=== PATIENT | male | born 1990 | race Caucasian/White ===

== ENCOUNTER 2020-02-21 16:15 | Outpatient (REF) | payer MEDICAID, SELFPAY | END 2020-02-21 16:16 | disposition home or self-care (01) | LOC: HO.LAB 16:15 | PROVIDERS: Visit Provider Internal Medicine | DX: Z20.828 Contact with and (suspected) exposure to other viral communicable diseases (principal) | CPT/HCPCS: C9803; U0003 ==

== ENCOUNTER 2020-04-30 15:49 | Outpatient (REF) | payer MEDICAID, SELFPAY | END 2020-04-30 15:50 | disposition home or self-care (01) | LOC: HO.LAB 15:49 | PROVIDERS: Visit Provider Internal Medicine | DX: Z20.822 Contact with and (suspected) exposure to COVID-19 (principal) | CPT/HCPCS: 36415; C9803; U0003 ==

== ENCOUNTER 2020-06-24 10:50 | Emergency (ER) | payer MEDICAID, SELFPAY ==
[2020-06-24 11:03] VITALS: BP 114/74; PULSE 80; RESP 16; TEMP 36.6; O2SAT 100; BMI 25.8
--- NOTE | 2020-06-24 11:04 | ED_ITS ---
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 States still has pain on the right side sometimes radiates down the right leg. He denies any GI symptoms. No recent fever or illness. Denies any prior h istory of IVD or current IVDA use. No bowel/bladder involvement. Onset (ago): week(s) Severity: moderate Relieving factors: immobilization Exacerbating factors: movement and palpation Other symptoms: none Treatments prior to arrival: cold therapy Related Data Previous Rx's Medication Instructions Recorded cyclobenzaprine 5 mg PO TID PRN #14 tab 06/24/20 ibuprofen 800 mg PO Q8H PRN #30 tab 06/24/20 prednisone 40 mg PO DAILY 5 Days #10 tab 06/24/20 Allergies Allergy/AdvReac Type Severity Reaction Status Date / Time Penicillins [PCN] Allergy Mild RASH Verified 06/24/20 11:02 bee pollen [BEE STINGS] Allergy Unknown ANAPHYLAXIS Verified 06/24/20 11:02 mushroom [MUSHROOM] Allergy Unknown ANAPHYLAXIS Verified 06/24/20 11:02 Balicillin Allergy Unknown Unknown Uncoded 06/24/20 11:02 Review of Systems Review of Systems: Constitutional: No Weight loss, No Fever, No Chills, No Night Sweats, No Fatigue, No Malaise ENT/Mouth: No Hearing loss, No Ear Pain, No Nasal Congestion, No Sinus Pain, No Hoarseness, No sore throat, No Rhinorrhea, No Swallowing Difficulty Eyes: No Eye Pain, No Swelling, No Redness, No Foreign Body, No Discharge, No Vision Changes Cardiovascular: No Chest Pain, No SOB, No Dyspnea on Exertion, No Orthopnea, No Edema, No Palpitations Respiratory: No Cough, No Sputum, No Wheezing, No Smoke Exposure, No Dyspnea Gastrointestinal: No Nausea, No Vomiting, No Diarrhea, No Constipation, No abdominal Pain, No Hematochezia, No Melena Genitourinary: No Dysuria, No Urinary Frequency, No Hematuria, No Urinary Incontinence, No Urgency, No Flank Pain, No Urinary Flow Changes, No Hesitancy Musculoskeletal: No joint pain, No Myalgias, No Joint Swelling, as moted per HPI Skin: No Skin Lesions, No rash Neuro: No Weakness, No Numbness, No Paresthesias, No Loss of Consciousness, No Dizziness, No Headache Psych: No Social Issues Heme/Lymph: No Bruising, No Bleeding,No Lymphadenopathy Endocrine: No Polyuria, No Polydipsia, No Temperature Intolerance [facility] Past Medical History Medical History Asthma No known health problems Social History Social History Advance Directives: No Advance Directives Information Provided: No Physical Exam Vital Signs: Vital Signs: Last Vital Signs Temp 97.8 F 06/24/20 11:03 Pulse 80 06/24/20 11:03 Resp 16 06/24/20 11:03 BP 114/74 06/24/20 11:03 Pulse Ox 100 06/24/20 11:03 Body Mass Index 25.8 Reviewed Const: General: cooperative and healthy appearing; No acute distress or intoxicated appearing Nutritional Appearance: average body habitus Orientation/consciousness: patient oriented x3 HENMT: Head: Yes normal to inspection Ears: hearing grossly normal bilaterally Eyes: General: appearance normal, both eyes and all related structures Visual Garcia: normal visual garcia by confrontation Neck: Neck: Yes normal visual inspection, No positive Brudzinski's sign, No positive Kernig's sign and No tender Thyroid: Thyroid normal Chest: Chest palpation & inspection: normal inspection of the chest Resp: Effort & Inspection: normal respiratory effort Auscultation: clear to auscultation bilaterally Cardio: Jugular venous distension: no JVD Rhythm: regular rhythm Heart sounds: S1 normal heart sound present and S2 normal heart sound present GI: Inspection: Yes normal to inspection Palpation (GI): Soft to palpation Percussion: Yes normal to percussion Auscultation: normal bowel sounds : General: Yes no CVA tenderness Back/Spine/Pelvis: Back: no CVA tenderness Back/spine/pelvis image: 1. Soft tissue tender palpation over this region. No rash or ecchymoses. No midline to palpation. No step-off. Positive leg lift at 65 degrees on right side. Negative Homans. No lower extremity edema. Pulses intact. Full range of motion. Skin tone within normal limits. Skin: General skin exam: no rashes or lesions noted Neuro: General: patient oriented x3 Extrem: General: Yes normal to inspection Course Course Course Narrative: Right-sided lumbar paraspinal muscle strain subsequent sciatic involvement without lbp red flags. VSS, NAD. Ambulatory steady straight gait. No GI/ vomit. No signs symptoms of saddle anesthesia. Is requesting chiropractor referral. Discharge Plan Discharge Clinical Impression: Sciatica Qualifiers: Laterality: right Qualified Code(s): M54.31 - Sciatica, right side Patient Disposition: Home, Self-Care Instructions: Sciatica (ED) Additional Instructions: Gentle stretching Warm compresses Take medication prescribed Do not drink alcohol or drive while taking muscle relaxant (Flexeril) Follow-up with outpatient referral as discussed Return if any concerns or worsening symptoms Thank you Prescriptions: New cyclobenzaprine 5 mg tablet 5 mg PO TID PRN (Reason: muscle spasm) Qty: 14 RF: 0 prednisone 20 mg tablet 40 mg PO DAILY 5 Days Qty: 10 RF: 0 ibuprofen 800 mg tablet 800 mg PO Q8H PRN (Reason: pain) Qty: 30 RF: 0 Referrals: Physician,None [Primary Care Provider] - 2 days ([facility] [address] [place] [address] [id number] ? ) Lauren Bean MD [Physician] - 1 week
== END 2020-06-24 11:39 | disposition home or self-care (01) ==
PROVIDERS: Emergency Provider Emergency Medicine
DX: M54.31 Sciatica, right side (principal); Z79.899 Other long term (current) drug therapy
CPT/HCPCS: 99283

== ENCOUNTER 2020-10-22 20:11 | Emergency (ER) | payer MEDICAID, SELFPAY ==
[2020-10-22 21:03] VITALS: BP 107/77; PULSE 73; RESP 16; TEMP 36.9; O2SAT 98; BMI 26.6
--- NOTE | 2020-10-22 23:04 | ED.BACK ---
HPI - Back Pain/Injury General Chief Complaint: Back Pain/Injury Stated Complaint: BACK PAIN Time Seen by Provider: 10/22/20 23:01 Source: patient Mode of arrival: ambulatory Limitations: no limitations History of Present Illness HPI Narrative: Patient with chronic low back pain complaining of increased pain lately ambulatory to the ER without any significant distress says that he was picking up something and pain got worse no paresthesias no weakness patient took Flexeril prior to arrival Related Data Previous Rx's Medication Instructions Recorded cyclobenzaprine 5 mg PO TID PRN #14 tab 06/24/20 ibuprofen 800 mg PO Q8H PRN #30 tab 06/24/20 prednisone 40 mg PO DAILY 5 Days #10 tab 06/24/20 cyclobenzaprine 10 mg PO TID PRN #14 tab 10/22/20 naproxen [Naprosyn] 500 mg PO BID PRN #30 tab 10/22/20 Allergies Allergy/AdvReac Type Severity Reaction Status Date / Time Penicillins [PCN] Allergy Mild RASH Verified 10/22/20 21:03 bee pollen [BEE STINGS] Allergy Unknown ANAPHYLAXIS Verified 10/22/20 21:03 mushroom [MUSHROOM] Allergy Unknown ANAPHYLAXIS Verified 10/22/20 21:03 Balicillin Allergy Unknown Unknown Uncoded 06/24/20 11:02 Review of Systems Review of Systems: Yes all other systems are reviewed and are negative PMFSH Past Medical History Medical History Asthma No known health problems Physical Exam Vital Signs: Vital Signs: Last Vital Signs Temp 98.4 F 10/22/20 21:03 Pulse 73 10/22/20 21:03 Resp 16 10/22/20 21:03 BP 107/77 10/22/20 21:03 Pulse Ox 98 10/22/20 21:03 Body Mass Index 26.6 Appearance: Alert. Oriented X3. No acute distress. ENT: Pharynx normal. Oral Mucosa moist Neck: Normal inspection. Neck supple. CVS: Normal heart rate and rhythm. Pulses normal. Respiratory: No respiratory distress. Equal air entry bilateral, Abdomen: Soft and nontender. Bowel sounds are present, Skin: Skin warm and dry. Normal skin color. Normal skin turgor. Back: Diffuse lower spine spasm no focal spinal tenderness as SLR negative bilateral Extremities: No lower extremity edema. No calf tenderness Neuro: Oriented X 3. No motor deficit. No sensory deficit. Discharge Plan Discharge Clinical Impression: Chronic back pain Qualifiers: Back pain location: low back pain Back pain laterality: bilateral Sciatica presence: without sciatica Qualified Code(s): M54.5 - Low back pain Patient Disposition: Home, Self-Care Instructions: Back Pain (ED) Additional Instructions: Take pain medication as prescribed and follow with PCP Prescriptions: New naproxen [Naprosyn] 500 mg tablet 500 mg PO BID PRN (Reason: pain) Qty: 30 RF: 0 cyclobenzaprine 10 mg tablet 10 mg PO TID PRN (Reason: muscle spasm) Qty: 14 RF: 0 No Action cyclobenzaprine 5 mg tablet 5 mg PO TID PRN (Reason: muscle spasm) Qty: 14 RF: 0 prednisone 20 mg tablet 40 mg PO DAILY 5 Days Qty: 10 RF: 0 ibuprofen 800 mg tablet 800 mg PO Q8H PRN (Reason: pain) Qty: 30 RF: 0
[2020-10-22] MEDS: Ketorolac Tromethamine 15 MG/ML VIAL IM (23:28)
== END 2020-10-22 23:31 | disposition home or self-care (01) ==
LOC: HO.ED 23:16
PROVIDERS: Emergency Provider Internal Medicine; PCP Family Medicine
DX: M54.5 Low back pain (principal)
CPT/HCPCS: 96372; 99283; 99284; J1885

== ENCOUNTER 2021-05-15 17:32 | Emergency (ER) | payer MEDICAID, SELFPAY ==
--- NOTE | ~2021-05-15 | XR_ITS ---
EXAMINATION: XR LUMBOSACRAL SPINE CLINICAL INFORMATION: Back pain. COMPARISON: Radiograph of the lumbar spine dated from 03/23/2017. TECHNIQUE: Three views of the lumbosacral spine. FINDINGS: The vertebral bodies and posterior elements are normal. The disc spaces are preserved and the vertebral alignment is normal. The paraspinal soft tissues are normal. XR/XR lumbar spine 2-3V IMPRESSION: Unremarkable examination.
[2021-05-15 18:26] VITALS: BP 143/72; PULSE 94; RESP 18; TEMP 37; O2SAT 99; BMI 25.8
[2021-05-15 18:57] LABS: COVID-19 Test Negative (Negative); IDNOW Serial# 08D9AD1C
--- NOTE | 2021-05-15 21:49 | ED.GENADULT ---
HPI - General Adult General Chief complaint: General Medical Stated complaint: back pain and sore throat chills Time Seen by Provider: 05/15/21 18:38 Source: patient Mode of arrival: ambulatory Limitations: no limitations History of Present Illness HPI narrative: 30 years old male came in for evaluation of low back pain. Back pain started since early this morning, pain is dull aching, constant, worsening with movement, partial improvement with rest, no radiation, no other associated symptoms in particular no urinary incontinence, no weakness, no numbness. Patient declined any history of IV drug abuse, no fever, no chills. No back trauma. Patient had similar episodes of back pain sporadically. Related Data Previous Rx's Medication Instructions Recorded cyclobenzaprine 5 mg tablet 5 mg PO TID PRN #14 tab 06/24/20 ibuprofen 800 mg tablet 800 mg PO Q8H PRN #30 tab 06/24/20 prednisone 20 mg tablet 40 mg PO DAILY 5 Days #10 tab 06/24/20 cyclobenzaprine 10 mg tablet 10 mg PO TID PRN #14 tab 10/22/20 naproxen 500 mg tablet (Naprosyn) 500 mg PO BID PRN #30 tab 10/22/20 Allergies Allergy/AdvReac Type Severity Reaction Status Date / Time Penicillins [PCN] Allergy Mild RASH Verified 10/22/20 21:03 bee pollen [BEE STINGS] Allergy Unknown ANAPHYLAXIS Verified 10/22/20 21:03 mushroom [MUSHROOM] Allergy Unknown ANAPHYLAXIS Verified 10/22/20 21:03 Balicillin Allergy Unknown Unknown Uncoded 06/24/20 11:02 Review of Systems Review of Systems: all other systems are reviewed and are negative Constitutional: Reports as per HPI and Reports no additional constitutional complaints Eyes: Reports as per HPI and Reports no additional eye complaints Reports system reviewed and no additional complaints, except as documented Cardiovascular: Reports as per HPI and Reports no additional cardiovascular complaints Respiratory: Reports as per HPI and Reports no additional respiratory complaints Gastrointestinal: Reports as per HPI and Reports no additional gastrointestinal complaints Genitourinary: Reports no additional female genitourinary complaints Musculoskeletal: Reports no additional musculoskeletal complaints Skin/Breast: Reports system reviewed and no additional complaints, except as docu Psychiatric: Reports no additional psychiatric complaints Endocrine: Reports no additional endocrine complaints Hematologic/Lymphatic: Reports no additional hematologic/lymphatic complaints Allergic/Immunologic: Reports no additional allergic/immunologic complaints Reports system reviewed and no additional complaints, except as documented and Reports Abnormal speech present [facility] Past Medical History Medical History Asthma Back pain Social History Social History Advance Directives: No Advance Directives Information Provided: No Physical Exam Vital Signs: Vital Signs: Last Vital Signs Temp 98.6 F 05/15/21 18: Pulse 94 05/15/21 18:26 Resp 18 05/15/21 18:26 BP 143/72 H 05/15/21 18: Pulse Ox 99 05/15/21 18: BMI result Body Mass Index 25.8 vital signs have been reviewed as appeared to be correct. Blood pressure normal. Heart rate normal. Respiration rate normal. Temperature normal. Oxygen saturation normal. Appearance: Alert. Oriented X3. No acute distress. Head: Normal external exam. Normocephalic. Atraumatic. No Tovar signs noted. No raccoon eyes noted Eyes: PERRLA. EOMI. Conjunctiva and sclera normal. Eyelids normal. ENT: TM's Normal. Pharynx normal. Uvula midline. Moist mucous membranes. No trismus noted. No drooling noted. No muffled voice noted. Neck: Normal inspection. Neck supple. FROM. No adenopathy. Thyroid Normal. No meningeal signs. No neck mass noted. CVS: Normal heart rate and rhythm. Heart sound normal. No murmurs noted. Pulses normal throughout. Respiratory: No respiratory distress. Painless inspiration. Breath sounds normal. No wheezes/rales/rhonchi noted. Chest nontender. No accessory muscle usage noted or decreased air movement noted. Abdomen: Soft and nontender. Bowel sounds normal in all 4 quadrants. No distention noted. No organomegaly noted. No visible injury noted. Back: No CVA tenderness. Full range of motion noted. Skin: Skin warm and dry. Normal skin color. Normal skin turgor. No rashes/lesions/lacerations noted. Extremities: No lower extremity edema. Extremities exhibit normal range of motion. Extremities nontender. Neuro: Oriented X 3. Cranial nerve exam: II-XII are grossly intact No motor deficit. No sensory deficit. Reflexes normal. able to ambulate on both toes and heels. Perianal sensation intact. Course Course Course Narrative: Assessment and plan. 30-year-old male came in with low back pain x1 day symptoms and clinical presentation with physical exam are consistent with myofascial muscle spasms. patient at low risk for epidural abscesses since no fever, no history of IV drug abuse, was intact neuro exam, no urinary or stool incontinence. Patient was instructed to apply heating pad, rest, avoid lifting / pushing /pending. Using NSAIDs and muscle relaxant. Medical Decision Making Lab Data Lab results reviewed: Yes I reviewed the patient's lab results. Labs: Lab Results 05/15/21 05/15/21 Range/Units 18:29 21:58 Urine Color YELLOW Urine Appearance CLEAR Urine pH 6.5 (5.0-8.0) Ur Specific [place] 1.025 (1.005-1.025) Urine Protein NEG (NEG-TRACE) MG/DL Urine Glucose (UA) NEG (NEG) MG/DL Urine Ketones NEG (NEG) MG/DL Urine Blood NEG (NEG) Urine Nitrite NEG (NEG) Ur Leukocyte Esterase NEG (NEG) COVID-19 ([facility]) Negative (Negative) COVID-19 Clin Com See Note Imaging Data lumbar spine x-ray: Attestation: I personally reviewed and interpreted this imaging study as follows: Radiologist's impression: unremarkable examination. Discharge Plan Discharge Clinical Impression: Acute myofascial pain Patient Disposition: Home, Self-Care Instructions: Musculoskeletal Pain (ED) Prescriptions: No Action cyclobenzaprine 5 mg tablet 5 mg PO TID PRN (Reason: muscle spasm) Qty: 14 0RF prednisone 20 mg tablet 40 mg PO DAILY 5 Days Qty: 10 0RF ibuprofen 800 mg tablet 800 mg PO Q8H PRN (Reason: pain) Qty: 30 0RF naproxen [Naprosyn] 500 mg tablet 500 mg PO BID PRN (Reason: pain) Qty: 30 0RF cyclobenzaprine 10 mg tablet 10 mg PO TID PRN (Reason: muscle spasm) Qty: 14 0RF Referrals: [facility] [Primary Care Provider] - 2 days Stand Alone Forms: Work/School Release
[2021-05-15 22:14] LABS: Appearance Urine CLEAR; Color Urine YELLOW; Glucose Urine UA NEG (NEG); Leukocyte Esterase Urine NEG (NEG); Nitrite Urine NEG (NEG); PH 6.5 (5.0-8.0); Specific Gravity - Urine 1.025 (1.005-1.025); Urine Blood NEG (NEG); Urine Ketones NEG (NEG); Urine Protein NEG (NEG-TRACE)
[2021-05-15] MEDS: Ketorolac Tromethamine 60 MG/2 ML VIAL IM (22:46)
== END 2021-05-15 22:50 | disposition home or self-care (01) ==
PROVIDERS: Emergency Provider Emergency Medicine
DX: J02.8 Acute pharyngitis due to other specified organisms (principal); R51.9 Headache, unspecified; Z20.822 Contact with and (suspected) exposure to COVID-19; Z79.899 Other long term (current) drug therapy
CPT/HCPCS: 72100; 81003; 87635; 96372; 99284; J1885

== ENCOUNTER 2021-11-29 15:53 | Emergency (ER) | payer MEDICAID, SELFPAY ==
[2021-11-29 16:02] VITALS: BP 118/76; PULSE 105; RESP 16; TEMP 37.7; O2SAT 98; BMI 27.6
--- NOTE | 2021-11-29 16:28 | ED.EAR ---
HPI - Ear Problem General Chief complaint: Ear Problems Stated complaint: Earache/headache Source: patient Mode of arrival: ambulatory Limitations: no limitations History of Present Illness HPI Narrative: 31-year-old male presents for evaluation for right ear pain. 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 He presents because he would like his ear irrigated, and is reporting decreased hearing. Not report fevers or chills loss balance or MD Complaint: ear pain and decreased hearing Location: right ear Duration: constant Severity: mild Relieving factors: nothing Exacerbating factors: nothing Discharge from ear: no Associated symptoms ear: decreased hearing Treatment prior to arrival: none Related Data Previous Rx's Medication Instructions Recorded cyclobenzaprine 5 mg tablet 5 mg PO TID PRN muscle spasm #14 06/24/20 tabs ibuprofen 800 mg tablet 800 mg PO Q8H PRN pain #30 tabs 06/24/20 prednisone 20 mg tablet 40 mg PO DAILY 5 days #10 tabs 06/24/20 cyclobenzaprine 10 mg tablet 10 mg PO TID PRN muscle spasm #14 10/22/20 tabs naproxen 500 mg tablet (Naprosyn) 500 mg PO BID PRN pain #30 tabs 10/22/20 carbamide peroxide 6.5 % ear drops 5 drp otic (ear) right Q12H 4 days 11/29/21 (Ear Wax Removal Kit) #15 mL cefuroxime axetil 500 mg tablet 500 mg PO Q12H 7 days #14 tabs 11/29/21 Allergies Allergy/AdvReac Type Severity Reaction Status Date / Time Penicillins [PCN] Allergy Mild RASH Verified 11/29/21 16:02 bee pollen [BEE STINGS] Allergy Unknown ANAPHYLAXIS Verified 11/29/21 16:02 mushroom [MUSHROOM] Allergy Unknown ANAPHYLAXIS Verified 11/29/21 16:02 Balicillin Allergy Unknown Unknown Uncoded 06/24/20 11:02 Review of Systems Review of Systems: Constitutional: No Fever, No Chills ENT/Mouth: Positive Ear Pain, No Hoarseness, No sore throat Eyes: No Eye Pain, No Swelling, No Redness, No Foreign Body Cardiovascular: No Chest Pain, No SOB Respiratory: No Cough, No Dyspnea Gastrointestinal: No Nausea, No Vomiting, No Diarrhea, No abdominal Pain Genitourinary: No Dysuria, No Hematuria Musculoskeletal: No joint pain, No Myalgias, No Joint Swelling Skin: No Skin lacerations, No rash Neuro: No Weakness, No Numbness, No Paresthesias, No Loss of Consciousness, No Dizziness, No Headache Psych: No Anxiety/Panic, No Depression Heme/Lymph: no easy bruising, no Lymphadenopathy Endocrine: No Polyuria, No Polydipsia Yes all other systems are reviewed and are negative [facility] Past Medical History Attestation statement: The following information was validated with the patient. Source: old records reviewed Medical History Asthma Back pain Social History Social History Advance Directives: No Advance Directives Information Provided: No Physical Exam Vital Signs: Vital Signs: Last Vital Signs Temp 99.9 F 11/29/21 16:02 Pulse 105 H 11/29/21 16:02 Resp 16 11/29/21 16:02 BP 118/76 11/29/21 16:02 Pulse Ox 98 11/29/21 16:02 O2 Del Method 11/29/21 16:02 BMI result Body Mass Index 27.6 Appearance: Alert. Oriented X3. No acute distress. Eyes: Pupils equal, round and reactive to light. ENT: Pharynx normal. Right tympanic membrane partially visualized secondary to cerumen on the tympanic membrane. Visualized tympanic membrane is erythematous and bulging. Left tympanic membrane is normal. Bilateral canals are normal. No mastoid tenderness. Neck: Normal inspection. Neck supple. No cervical lymphadenopathy. CVS: Normal heart rate and rhythm. Pulses normal. Respiratory: No respiratory distress. Breath sounds normal. Abdomen: Soft and nontender. Skin: Skin warm and dry. Normal skin color. Normal skin turgor. Extremities: No lower extremity edema. Get well-balanced well coordinated. Neuro: No motor deficit. No sensory deficit. Cranial nerves 2-12 intact. Course Course Course Narrative: 31-year-old male presents for right ear pain requesting irrigation. 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 Right tympanic membranes partially visualized, bulging and erythematous consistent with otitis media, cerumen circumferential with partial occlusion of tympanic membrane. , no mastoid tenderness, no cervical lymphadenopathy, for [id number] Debrox drops or liquid Colace, and to be given cefuroxime for otitis media. Patient is afebrile and nontoxic. Vital signs stable and within normal limits. Patient verbalized understanding of and agrees plan of care discharge home. Verbalized understanding of signs symptoms indicate need for emergent intervention. MDM - Ear Differential Diagnosis Differential diagnosis: Likely otitis externa, otitis media, foreign body in ear, ruptured TM and cerumen impaction Medical Records Attestation: I reviewed the patient's medical records. Discharge Plan Discharge Clinical Impression: Otitis media, Cerumen debris on tympanic membrane of right ear Patient Disposition: Home, Self-Care Instructions: How to Use Ear Drops (ED), Ear Infection (ED) Additional Instructions: You were evaluated for your pain. Please take cefuroxime 500 mg twice a day for the next 7 days. This medication is for 10 days. Please use ear wax removal kit, follow the directions on the package. If ear drops are not available [id number] or by the pharmacy, you can use liquid Colace. You can find this medication in the stool softener section. You can ask pharmacist or pharmacy employee to help you find this medication. Apply 5 drops to the right ear twice a day. Irrigate with a bulb syringe. Follow-up with primary care physician next week. Return to the emergency department for any new, concerning, or worsening symptoms. Prescriptions: New cefuroxime axetil 500 mg tablet 500 mg PO Q12H 7 Days Qty: 14 0RF Ear Wax Removal Kit 6.5 % drops 5 drp otic (ear) right Q12H 4 Days Qty: 15 0RF No Action cyclobenzaprine 5 mg tablet 5 mg PO TID PRN (Reason: muscle spasm) Qty: 14 0RF prednisone 20 mg tablet 40 mg PO DAILY 5 Days Qty: 10 0RF ibuprofen 800 mg tablet 800 mg PO Q8H PRN (Reason: pain) Qty: 30 0RF naproxen [Naprosyn] 500 mg tablet 500 mg PO BID PRN (Reason: pain) Qty: 30 0RF cyclobenzaprine 10 mg tablet 10 mg PO TID PRN (Reason: muscle spasm) Qty: 14 0RF Interventions: ED Discharge Assessment Last Done: 11/29/21 17:13 Discharge Date/Time: 11/29/21 17:14
[2021-11-29] MEDS: Docusate Sodium 100 MG/10 ML LIQUID PO (17:04)
== END 2021-11-29 17:14 | disposition home or self-care (01) ==
PROVIDERS: Emergency Provider Emergency Medicine
DX: H66.91 Otitis media, unspecified, right ear (principal); H61.21 Impacted cerumen, right ear; H92.01 Otalgia, right ear
CPT/HCPCS: 99283

== ENCOUNTER 2022-10-29 15:13 | Outpatient (REF) | payer MEDICAID, SELFPAY ==
--- NOTE | ~2022-10-29 | XR_ITS ---
EXAMINATION: XR LUMBOSACRAL SPINE CLINICAL INFORMATION: Lumbar sprain. COMPARISON: 05/15/2021 and 03/23/2017. TECHNIQUE: Three views of the lumbosacral spine. FINDINGS: There are 5 [id number] lumbar vertebrae. The bony texture and alignment is satisfactory. No acute fracture, spondylolisthesis, or spondylolysis appreciated. There is mild spurring seen anterior aspect superior endplate L4. There appears to be mild narrowing posterior aspects of the L4-L5 and L5-S1 levels. Sacroiliac joints appear unremarkable. Pedicles intact. XR/XR lumbar spine 2-3V IMPRESSION: Minor degenerative change lumbar spine L4 to S1. No acute fracture, spondylolisthesis, or spondylolysis identified.
== END 2022-10-29 15:14 | disposition home or self-care (01) ==
LOC: HO.XRAY 15:13
PROVIDERS: PCP Internal Medicine; Visit Provider Internal Medicine
DX: S33.5XXA Sprain of ligaments of lumbar spine, initial encounter (principal); X58.XXXA Exposure to other specified factors, initial encounter; Y93.9 Activity, unspecified; Y92.9 Unspecified place or not applicable; Y99.9 Unspecified external cause status
CPT/HCPCS: 72100

== ENCOUNTER 2024-12-31 20:22 | Emergency (ER) | payer MEDICAID, SELFPAY ==
--- NOTE | 2024-12-31 20:24 | ED_ITS ---
HPI - Back Pain/Injury General Chief Complaint: Back Pain/Injury Stated Complaint: back pain Time Seen by Provider: 12/31/24 20:31 Source: patient Mode of arrival: ambulatory Limitations: no limitations History of Present Illness ED Provider: Carlyn Hinkle APRN HPI Narrative: 34 yo male with history of sciatica, degenerative disc disease, bipolar disorder, ADHD, migraines, asthma here with lower back pain x 4 days. No injuries or falls. Taking naproxen at home with continued pain. Also tried diclofenac. Pain radiates down the right leg. No weakness, numbness, tingling in the LE. No numbness in the groin. No bowel or bladder incontinence. No fevers, chills. No history of IVDA, weight loss or night sweats. Related Data Previous Rx's ?Medication ?Instructions ?Recorded cyclobenzaprine 5 mg tablet 5 mg PO TID PRN muscle spa sm #14 06/24/20 tabs ibuprofen 800 mg tablet 800 mg PO Q8H PRN pain #30 t abs 06/24/20 prednisone 20 mg tablet 40 mg (2 x 20 mg) PO DAILY 5 days 06/24/20 #10 tabs cyclobenzaprine 10 mg tablet 10 mg PO TID PRN muscle s pasm #14 10/22/20 tabs naproxen 500 mg tablet (Naprosyn) 500 mg PO BID PRN pa in #30 tabs 10/22/20 carbamide peroxide 6.5 % ear drops 5 drp otic (ear) ri ght Q12H 4 days 11/29/21 (Ear Wax Removal Kit) #15 mL cefuroxime axetil 500 mg tablet 500 mg PO Q12H 7 days #14 tabs 11/29/21 cyclobenzaprine 10 mg tablet 10 mg PO TID PRN muscle s pasm #15 12/31/24 tabs lidocaine 5 % topical patch 1 patch topical DAILY #15 ea 12/31/24 (Lidoderm) naproxen 500 mg tablet 500 mg PO BID PRN pain #30 t abs 12/31/24 Allergies Allergy/AdvReac Type Severity Reaction Status Date / Time Penicillins (PCN) Allergy Mild RASH Verified 12/31/24 20:26 bee pollen (BEE STINGS) Allergy Unknown ANAPHYLAXIS Verified 12/31/24 20:26 mushroom (MUSHROOM) Allergy Unknown ANAPHYLAXIS Verified 12/31/24 20:26 Balicillin Allergy Unknown Unknown Uncoded 12/31/24 20:26 Review of Systems Review of Systems: Yes all other systems are reviewed and are negative Constitutional: Constitutional: Reports no additional constitutional complaints, Denies body ache(s), Denies chills, Denies fever(s), Denies headache(s) and Denies weakness Eyes: Eyes: Reports no additional eye complaints and Denies change in vision ENT: Reports system reviewed and no additional complaints, except as documented, Denies dizziness, Denies headache(s), Denies nasal congestion, Denies nasal discharge and Denies neck pain Cardiovascular: Cardiovascular: Reports no additional cardiovascular complaints, Denies chest pain, Denies leg edema and Denies dyspnea Respiratory: Respiratory: Reports no additional respiratory complaints, Denies cough and Denies dyspnea Gastrointestinal: Gastrointestinal: Reports no additional gastrointestinal complaints, Denies abdominal pain, Denies diarrhea, Denies nausea and Denies vomiting Genitourinary: Genitourinary: Denies urinary incontinence Musculoskeletal: Musculoskeletal: Reports no additional musculoskeletal compl aints, Reports back pain, Denies arthralgias, Denies joint swelling, Denies neck pain, Denies numbness, Reports radiating pain into limb and Denies tingling Integumentary/Breasts: Skin/Breast: Reports system reviewed and no additional complaints, except as docu and Denies rash Neurologic: Reports system reviewed and no additional complaints, except as documented, Denies Abnormal speech present, Denies dizziness, Denies headache(s), Denies numbness, Denies tingling and Denies weakness PMFSH Past Medical History Attestation statement: The following information was validated with the patient. Source: old records reviewed and nursing notes reviewed Medical History Back pain Asthma Social History Social History Advance Directives: No Advance Directives Information Provided: Yes Physical Exam Vital Signs: Vital Signs: Last Vital Signs Temp 98.0 F 12/31/24 20:25 Pulse 88 12/31/24 20:25 Resp 16 12/31/24 20:25 BP 117/76 12/31/24 20:25 Pulse Ox 100 09/28/25 20:25 O2 Del Method Room Air 12/31/24 20:25 BMI result Body Mass Index 28.1 Const: General: cooperative, healthy appearing, comfortable and no acute distress Orientation/consciousness: patient oriented x3 Limitations: no limitations HEENT: Head: Yes normal to inspection Ears: hearing grossly normal bilaterally General nose exam: Normal external nose present Face and sinus: Yes normal facial exam Mouth: Normal oral and palatal mucosa present Throat: Yes posterior oropharynx normal Eyes: General: appearance normal, both eyes and all related structures Pupils: Equal, round and reactive pupils present Neck: Neck: Yes normal visual inspection Chest: Chest palpation & inspection: normal inspection of the chest Resp: Effort & Inspection: normal respiratory effort Auscultation: clear to auscultation bilaterally Cardio: Rate: regular rate Rhythm: regular rhythm Peripheral pulses: Peripheral pulses 2+ throughout GI: Inspection: Yes normal to inspection Palpation (GI): Soft to palpation and nontender Auscultation: normal bowel sounds Back/Spine/Pelvis: Other: Lumbar mid spine tenderness with no step offs or deformities worsened with flexion of the spine Thoracic/Lumbar Spine: thoracic and lumbar spine normal to inspection Skin: General skin exam: no rashes or lesions noted Neuro: General: patient oriented x3, moves all extremities, no focal motor deficits and normal sensation to monofilament Cranial nerves: Yes CN's II-XII intact bilaterally, Yes Equal, round and reactive pupils present, Yes Bilaterally intact EOM present, Yes Nystagmus not present, Yes Normal facial strength present and Yes Midline tongue present Cognition (Neuro): normal cognition Speech: No Abnormal speech present Gait exam (Neuro): Normal gait present Motor exam (neuro): 5/5 motor strength present throughout Sensory Exam: Normal double simultaneous stimulation for sensation Deep tendon reflexes (DTR's): Right patellar reflex intensity grade: 2+ and Left patellar reflex intensity grade: 2+ Extrem: General: Yes normal to inspection Medical Decision Making Medical Decision Making MDM Narrative: 34 yo male with history of sciatica, degenerative disc disease, bipolar disorder, ADHD, migraines, asthma here with lower back pain x 4 days. No injuries or falls. Taking naproxen at home with continued pain. Also tried diclofenac. Pain radiates down the right leg. No weakness, numbness, tingling in the LE. No numbness in the groin. No bowel or bladder incontinence. No fevers, chills. No history of IVDA, weight loss or night sweats. TTP to lumbar mid spine, no step or deformities. Worsened with flexion of the spine. Normal neuro exam with no focal deficits or red flag symptoms. Likely lumbar radiculpathy Will treat with NSAIDs, flexeril, lidoderm patches Differential Diagnosis Differential Diagnoses: The differential diagnosis associated with the presentation includes Lumbar radiculopathy, lumbar strain, herniated disc Low suspicion for epidural abscess with no risk factors of same, no neurological deficits or red flag symptoms Low suspicion for ACS with no reports of chest pain, shortness of breath, diaphoresis or vomiting Low suspicion for pyelonephritis or renal colic with no CVA tenderness, urinary symptoms reported Low suspicion for malignancy with no red flag symptoms, more acute onset Low suspicion for cord compression, cauda equina with normal neurological exam and no red flag symptoms Admission/Observation Consideration of admission/observation: Escalation of care including admission/observation considered No neurological deficits or red flag symptoms suggest need for emergent MRI, neurosurgery consultation and/or admission Tests considered The following testing was considered but not selected: see above Discharge Plan Discharge Clinical Impression: Lumbar radiculopathy Patient Disposition: Home, Self-Care Instructions: Lumbar Radiculopathy (ED), Lower Back Exercises (ED) Additional Instructions: Heat or ice Gentle stretching Follow up with your outpatient providers as needed for any continued symptoms Prescriptions: New naproxen 500 mg tablet 500 mg PO BID PRN (Reason: pain) Qty: 30 0RF cyclobenzaprine 10 mg tablet 10 mg PO TID PRN (Reason: muscle spasm) Qty: 15 0RF lidocaine [Lidoderm] 5 % adhesive patch,medicated 1 patch topical DAILY Qty: 15 0RF Rx Instructions: leave on most painful area for up to 12 hrs No Action cyclobenzaprine 5 mg tablet 5 mg PO TID PRN (Reason: muscle spasm) Qty: 14 0RF prednisone 20 mg tablet 40 mg PO DAILY 5 Days Qty: 10 0RF ibuprofen 800 mg tablet 800 mg PO Q8H PRN (Reason: pain) Qty: 30 0RF naproxen [Naprosyn] 500 mg tablet 500 mg PO BID PRN (Reason: pain) Qty: 30 0RF cyclobenzaprine 10 mg tablet 10 mg PO TID PRN (Reason: muscle spasm) Qty: 14 0RF cefuroxime axetil 500 mg tablet 500 mg PO Q12H 7 Days Qty: 14 0RF Ear Wax Removal Kit 6.5 % drops 5 drp otic (ear) right Q12H 4 Days Qty: 15 0RF Referrals: Physician,Unknown J [Physician, Medical] Print Language: Kuwaiti
[2024-12-31 20:25] VITALS: BP 117/76; PULSE 88; RESP 16; TEMP 36.7; O2SAT 100; BMI 28.1
--- OUTSIDE RECORDS SUMMARY | 2024-12-31 20:39 | XMS_ITS | Clinical Summary ---
Author Organization [employer] Address [address] [place] [address] Care Team Providers Care Coat Baster Name Role Phone Unavailable Primary Care Provider Unavailabl e Allergies Active Allergy Reactions Criticality Noted Date Comments Bee Venom 08/01/2020 Other reaction(s): Hives / Skin Rash Mushroom Extract Complex (Obsolete) 08/01/2020 Other reaction(s): Trouble Breathing Penicillin G Hives 08/01/2020 Other reaction(s): Hives / Skin Rash Medications cyclobenzaprine (Flexeril) 10 MG tabletIndicatio ns:Lumbar sprain, initial encounter Take 1 tablet (10 mg) by mouth at bedtime for 10 days. 10 tablet 10/26/2022 Active Active Problems Problem Noted Date Diagnosed Date Lumbar sprain 10/26/2022 Assessment & Plan (10/26/2022 4:47 PM EDT): Take tylenol with flexiril qhs, counseled regarding sedation and constipation with lfexiril avoid driving fu x-ray and chiropractor FU with PCP in 8 weeks Atypical squamous cells of u ndetermined significance on cytologic smear of anus (ASC-US) 10/23/2022 Impacted tooth 10/01/2022 Dental caries 10/01/2022 Bipolar disorder 11/26/2021 Mood disorder 07/24/2021 Social History Tobacco Use Types Packs/Day Years Used Date Smoking Tobacco: Every Day Cigarettes 0.3 0.5 Passive Smoke Exposure: Past Smokeless Tobacco: Former Tobacco Cessation:Ready to Q uit: Not Asked; Counseling Given: Not Answered Alcohol Use Standard Drinks/Week Comments Never 0 (1 standard drink = 0.6 oz pur e alcohol) Depression Answer Date Recorded Patient Health Questionnaire-9 Score 22 10/26/2022 Housing Stability Answer Date Recorded What is your housing situation today? I have barbara bear 02/08/[address] you li ve. Do you have problems with any of the following? None of the above 02/08/2023 Food Insecurity Answer Date Recorded Within the past 12 months, y ou worried that your food would run out before you got money to buy more: Never True 02/08/2023 Within the past 12 months,th e food you bought just didn't last and you didn't have enough money to get more: Never True 09/2022 Transportation Answer Date Recorded In the past 12 months, has l ack of transportation kept you from medical appts, meetings, work or from getting things needed for daily living? No 02/08/2023 Utilities Answer Date Recorded In the past 12 months, has t he electric, gas, oil or water company threatened to shut off services in your home? No 02/08/2023 Depression Answer Date Recorded Patient Health Questionnaire-2 Score 3 10/26/2022 Sex and Gender Information Value Date Recorded Sex Assigned at Male 02/02/2022 10:37 AM EDT Legal Sex Male 10:37 AM EDT Gender Identity Male 02/02/2022 10:37 AM EDT Sexual Orientation Don't know 02/02/2022 10 :37 AM EDT Last Filed Vital Signs Vital Sign Reading Time Taken Comments Blood Pressure 119/87 10/26/2022 3:58 PM EDT Pulse 80 10/26/2022 3:58 PM EDT Temperature 36.2 C (97.2 F) 10/26/2022 3:58 PM EDT Respiratory Rate 14 10/26/2022 3:58 PM EDT Oxygen Saturation 98% 10/26/2022 3:58 PM EDT Inhaled Oxygen Concentration - - Weight 88.9 kg (196 lb) 10/26/2022 3:58 PM EDT Height 172.7 cm (5' 8 ) 10/26/2022 3:58 PM EDT Body Mass Index 29.8 10/26/2022 3:58 PM EDT Plan of Treatment Health Maintenance Due Date Last Done Comments Dental Oral Exam 1991 Dental Prophylaxis 1991 Disability Screening 1991 Alcohol/Substance Use Screening 2003 Family Planning (PISQ) 09/12/2006 HPV Vaccines (1 - Male 3-dos e series) 09/12/2006 Hepatitis B Vaccines (1 of 3 - 19+ 3-dose series) 09/12/2010 Pneumococcal Vaccine: Pediatrics (0 to 5 Years) and At-Risk Patients (6 to 49) Years (1 of 2 - PCV) 09/12/2010 DTaP/Tdap/Td Vaccines (1 - Tdap) 04/06/2018 04/05/2018 Dental X-Ray: Bitewings 07/29/2022 07/28/2021 Depression Monitoring 04/28/2023 10/26/2022 , 10/26/2022 SDOH Screening 10/27/2023 10/26/2022 Tobacco Screening 10/27/2023 10/26/2022 COVID-19 Vaccine (4 - 2024-2 6 season) 2024 04/24/2021, 08/14/2020, 07/17/2020 Influenza Vaccine (#1) 2024 Dental X-Ray: Full Mouth 10/02/2025 10/01/2022 Zoster Vaccines (1 of 2) 09/12/2041 RSV Patients and Patients Aged 60 years or older (1 - 1-dose 75+ series) 09/12/2066 HIV Screening Completed 07/28/2021, 08/07/2020 Hepatitis C Screening Completed 07/28/2021 , 08/07/2020 Hepatitis A Vaccines Aged Out 11/26/2021, 08/27/2020 No longer eligible based on patient's age to complete this topic HIB Vaccines Aged Out No longer eligi ble based on patient's age to complete this topic IPV Vaccines Aged Out No longer eligi ble based on patient's age to complete this topic Meningococcal B Vaccine Aged Out No l onger eligible based on patient's age to complete this topic Meningococcal Vaccine Aged Out No asuncion tamie eligible based on patient's age to complete this topic RSV under 20 months Aged Out No longe r eligible based on patient's age to complete this topic Rotavirus Vaccines Aged Out No longer eligible based on patient's age to complete this topic Procedures Procedure Name Priority Date/Time Associated Diagnosis Comments PANORAMIC RADIOGRAPHIC IMAGE Routine 10/01/2022 11:30 AM EDT ZZZ HISTORICAL HEPATITIS C AB W/REFL TO HCV RNA, QN, PCR Routine 07/28/2021 1:51 PM EDT HIV 1/2 ANTIGEN/ANTIBODY, FOURTH GENERATION W/RFL Routine 07/28/2021 1:51 PM EDT BITEWING - SINGLE RADIOGRAPHIC IMAGE Routine 07/28/2021 12:00 AM EDT from Last 3 Months or Most Recently Relevant to Health Maintenance Results * HEPATITIS C AB W/REFL TO HCV RNA, QN, PCR (07/28/2021 1:51 PM EDT) HEPATITIS C ANTIBODY NON-REACT EVANGELISTA NON-REACT EVANGELISTA [facility] INDEX 0.01 <1.00 [facility] Comment: HCV antibody was non-reactive. There is no laboratory evidence of HCV infection. In most cases, no further action is required. However, if recent HCV exposure is suspected, a test for HCV RNA (test code 85484) is suggested. For additional information please refer to http://[email or web address] REVA/faq/[email or web address] (This link is being provided for informational/ educational purposes only.) 07/28/2021 1:51 PM EDT Alena Schrader MANAGER ENTRY HISTORICAL/NON ORDERABLE LABS Final Result [facility] [address] * HIV 1/2 ANTIGEN/ANTIBODY,FOURTH GENERATION W/RFL (07/28/2021 1:51 PM EDT) HIV-1/2 ANTIGEN AND ANTIBODIES, 4TH GENERATION W/ REFLEX NON-REACT EVANGELISTA NON-REACT EVANGELISTA [facility] Comment: HIV-1 antigen and HIV-1/HIV-2 antibodies were not detected. There is no laboratory evidence of HIV infection. PLEASE NOTE: This information has been disclosed to you from records whose confidentiality may be protected by state law. If your state requires such protection, then the state law prohibits you from making any further disclosure of the information without the specific written consent of the person to whom it pertains, or as otherwise permitted by law. A general authorization for the release of medical or other information is NOT sufficient for this purpose. For additional information please refer to http://[email or web address] REVA/faq/VWW830 (This link is being provided for informational/ educational purposes only.) The performance of this assay has not been clinically validated in patients less than 2 years old. 07/28/2021 1:51 PM EDT us Alena Schrader [facility] LAB BLOOD ORDERABLES Final Res ult [facility] [place] [address], from Last 3 Months or Most Recently Relevant to Health Maintenance Insurance [facility] MEDICAID STAND ADULT [facility] C3 HSN PARTIAL [facility] ST[facility]
[2024-12-31 20:52] VITALS: BP 117/76; PULSE 88; RESP 16; TEMP 36.7; O2SAT 100
== END 2024-12-31 20:53 | disposition home or self-care (01) ==
PROVIDERS: Emergency Provider Emergency Medicine Emergency Medical Services
DX: M54.16 Radiculopathy, lumbar region (principal); M54.9 Dorsalgia, unspecified
CPT/HCPCS: 99282; 99283

== ENCOUNTER 2025-02-08 17:08 | Emergency (ER) | payer MEDICAID, SELFPAY ==
--- NOTE | 2025-02-08 | ECG_ITS ---
Test Reason : cp Blood Pressure : */* mmHG Vent. Rate : 71 BPM Atrial Rate : 71 BPM P-R Int : 132 ms QRS Dur : 96 ms QT Int : 354 ms P-R-T Axes : 47 57 59 degrees QTcB Int : 384 ms Normal sinus rhythm with sinus arrhythmia Normal ECG No previous ECGs available Referred By: Generic ED Physician Electronically Signed By: Prakash Renner
--- NOTE | ~2025-02-08 | XR_ITS ---
CLINICAL HISTORY: cough EXAM: Two views of the chest. COMPARISON: None FINDINGS: Normal cardiac, mediastinal, and hilar contours. Normal heart size. No pleural effusion or pneumothorax. Lungs are clear. No acute bone finding. IMPRESSION: 1. No acute cardiopulmonary process demonstrated. This document has been electronically signed by: Walter Bermudez MD on 02/08/2025 19:12:53
[2025-02-08 17:31] VITALS: BP 125/66; PULSE 86; RESP 18; TEMP 36.6; O2SAT 98; BMI 26.4
--- NOTE | 2025-02-08 17:32 | ED.GENADULT ---
HPI - General Adult General Chief complaint: Chest Pain Stated complaint: CP; chest tightness, tiredness fatigue Time Seen by Provider: 02/08/25 19:08 History of Present Illness ED Provider: Amilcar Bellamy MD HPI narrative: 34-year-old male reasonable from hands not 2 months now he has been without his medications including Strattera Depakote bipolar disorder. He is a smoker tobacco, but the past 3 weeks or so coughing feeling some epigastric lower chest discomfort squeezing like intermittently and stopped smoking he denies phlegm or hemoptysis. No leg swelling no exertional chest pain personal cardiac history he is aware denies night sweats chills fever. Originally from [place]. Reports of fully vaccinated Related Data Previous Rx's ?Medication ?Instructions ?Recorded cyclobenzaprine 5 mg tablet 5 mg PO TID PRN muscle spasm #14 06/24/20 tabs ibuprofen 800 mg tablet 800 mg PO Q8H PRN pain #30 tabs 06/24/20 prednisone 20 mg tablet 40 mg (2 x 20 mg) PO DAILY 5 days 06/24/20 #10 tabs cyclobenzaprine 10 mg tablet 10 mg PO TID PRN muscle spasm #14 10/22/20 tabs naproxen 500 mg tablet (Naprosyn) 500 mg PO BID PRN pain #30 tabs 10/22/20 carbamide peroxide 6.5 % ear drops 5 drp otic (ear) right Q12H 4 days 11/29/21 (Ear Wax Removal Kit) #15 mL cefuroxime axetil 500 mg tablet 500 mg PO Q12H 7 days #14 tabs 11/29/21 cyclobenzaprine 10 mg tablet 10 mg PO TID PRN muscle spasm #15 12/31/24 tabs lidocaine 5 % topical patch 1 patch topical DAILY #15 ea 12/31/24 (Lidoderm) naproxen 500 mg tablet 500 mg PO BID PRN pain #30 tabs 12/31/24 divalproex 500 mg tablet,delayed 500 mg PO BID 2 weeks #28 tabs 02/08/25 release (Depakote) famotidine 20 mg tablet 20 mg PO DAILY 14 days #14 tabs 02/08/25 Allergies Allergy/AdvReac Type Severity Reaction Status Date / Time Penicillins (PCN) Allergy Mild RASH Verified 02/08/25 17:33 bee pollen (BEE STINGS) Allergy Unknown ANAPHYLAXIS Verified 02/08/25 17:33 mushroom (MUSHROOM) Allergy Unknown ANAPHYLAXIS Verified 02/08/25 17:33 Balicillin Allergy Unknown Unknown Uncoded 02/08/25 17:33 [facility] Past Medical History Medical History Back pain Asthma Social History Social History Smoked in Last 30 Days: No Use of substances other than those prescribed or required for medical reasons: No Advance Directives: No Advance Directives Information Provided: No Do you have a plan to hurt others: No Plan Physical Exam ED Exam Exam: EXAM: Gen: Alert, awake, well appearing, well hydrated. Head: Atraumatic Eyes: Anicteric, Normal conjunctiva. ENT: Moist mucosa, no pallor. ? Neck: Supple. Skin: ?No observable rash or bruising on exposed or examined skin Respiratory: Breathing comfortably, No distress.Clear to auscultation bilaterally, symmetric chest expansion, No wheeze, rales, ronchi. Cardiovascular: Regular rate and rhythm. No murmurs or rub. Well perfused periphery, warm extremities. No edema. ? Abdominal: Mild midepigastric tenderness otherwise nontender. Soft, no objective distension. No palpable masses or obvious organomegaly. ?No guarding, no rebound tenderness or other peritoneal findings. : No flank tenderness. Neuro: Alert. Gross movement of all extremities intact. ? Psych: Calm. Cooperative. MSK: No grossly visible deformity. Vital signs: See flowsheet Vital Signs: Vital Signs - 24 hr 02/08/25 17:31 02/08/25 19:28 Temperature 97.8 F 98.4 F Pulse Rate 86 80 Respiratory Rate 18 18 Blood Pressure 125/66 108/80 Pulse Oximetry 98 98 Oxygen Delivery Method Room Air Room Air BMI result Body Mass Index 26.4 Course Course Course Narrative: Rapid medical examination performed in triage by Annita Sanchez PA-C: Patient is a 34 year old male presenting to the emergency department with intermittent chest pain and muscle pains. Detailed physical exam and review of systems are deferred to the rn building. EKG, labs, imaging, and swabs ordered. Patient placed back in the waiting room pending room availability and results. Medications Administered Discontinued Medications Generic Name Dose Route Start Last Admin Trade Name Altagracia PRN Reason Stop Dose Admin Famotidine 20 mg 02/08/25 19:17 02/08/25 19:36 Famotidine 20 Mg Tablet PO 02/08/25 19:18 20 mg ONCE ONE Administration Medical Decision Making Medical Decision Making MDM Narrative: Medical Decision Making: Male 3 weeks cough lower chest/upper epigastric seems a little bit tender gastritis, musculoskeletal chest pain looks well lungs are clear. No fever. Chest x-ray is clear labs are reassuring I will add a lipase from what was originally ordered as he seems to drink somewhat and we will check for pancreatitis. Looks well he is not vomiting looks euvolemic. Bicarb slightly elevated unclear etiology at this time but given his well appearance and scheduled outpatient PCP we will defer for any additional workup there. I will prescribe him Depakote Strattera he was on for brief course until he can establish PCP follow up Preliminary Favored Differential Diagnosis: [ ] among additional considered etiologies Testing Interpreted Independently: ?See below for details Radiology or Lab testing Results Reviewed: ?See below for details Consults: ?See below for details Independent Historians/External Chart Reviews: ?See below for details Social Determinants of Health Impacting MDM/Planning: ?See below for details Lab Data 02/08/25 17:50 02/08/25 17:50 Labs: Lab Results 02/08/25 Range/Units 17:50 WBC 5.7 (4.8-10.8) X10*3/uL RBC 4.70 (4.60-5.80) X10*6/uL Hgb 15.2 (14.0-18.0) g/dl Hct 44.2 (42.0-52.0) % MCV 94.0 (80.0-98.0) fL MCH 32.3 (27.0-33.0) pg MCHC 34.4 (31.0-36.0) g/dl RDW 12.1 (11.0-16.0) % Plt Count 189 (160-400) X10*3/uL MPV 10.8 (9.4-12.4) fL Immature Gran % (Auto) 0.2 (0.0-0.4) % Neut % (Auto) 53.8 (45-73) % Lymph % (Auto) 36.4 (20-40) % [place] % (Auto) 8.2 (2-11) % Eos % (Auto) 0.9 (0-4) % Baso % (Auto) 0.5 (0-2) % Lymph # (Auto) 2.1 (1.2-4.9) X10*3/uL [place] # (Auto) 0.5 (0.1-1.2) X10*3/uL Eos # (Auto) 0.1 (0.0-0.4) X10*3/uL Baso # (Auto) 0.0 (0.0-0.2) X10*3/uL Abs Immat Gran (auto) 0.01 (0.00-0.03) X10*3/uL Absolute Neuts (auto) 3.1 (2.0-8.3) x10*3/uL Absolute Nucleated RBC 0.000 (0.0-0.012) X10*3/uL Nucleated RBC % (auto) 0.0 (0.0-0.2) /100WBC Sodium 143 (135-145) mmol/L Potassium 4.1 (3.3-5.1) mmol/L Chloride 106 (96-108) mmol/L Carbon Dioxide 30 H (22-29) mmol/L Anion Gap 11 L (12-20) BUN 19 H (9-16) mg/dL Creatinine 1.33 (0.5-1.4) mg/dL Estim Creat Clear Calc 76.4 Estimated GFR > 60 Random Glucose 90 (60-115) mg/dL Calcium 9.3 (8.4-10.2) mg/dL Total Bilirubin 0.7 (0.0-1.0) mg/dL AST 24 (5-37) U/L ALT 41 H (0-40) U/L Alkaline Phosphatase 70 (39-117) U/L Troponin I High Sens 2.8 (<3.5-35.0) ng/L Total Protein 7.2 (6.5-8.0) g/dL Albumin 4.8 (3.5-5.0) g/dL Lipase 23 (8-78) U/L COVID-19 (AMARILYS) Negative (Negative) COVID-19 Clin Com See Note Influenza Type A (BOYD) Negative (Negative) Influenza Type B (BOYD) Negative (Negative) Influenza A & B Note See Note Discharge Plan Discharge Clinical Impression: Bipolar 1 disorder, Currently smokes tobacco, Abdominal pain, epigastric, Alcohol use disorder Patient Disposition: Home, Self-Care Instructions: Abdominal Pain (ED) Additional Instructions: DISCHARGE DIAGNOSES: Lower chest/upper abdominal pain with mild tenderness in the epigastric area. Cough ongoing for weeks. Unclear cause at this time HISTORY OF PRESENTATION: ?Cough pain as described above EMERGENCY DEPARTMENT COURSE,TESTS, TREATMENTS: While in the ED today chest x-ray basic lab work all reassuring EKG reassuring. Examination reassuring. DISCHARGE MEDICATIONS: ?We have prescribed you read course of your home medication that you even without for 2 months to be you can establish outpatient follow up I was unable to order your strattera , this will have to be prescribed by psychiatrist FOLLOW-UP: ?Call your primary or general physician soon as possible to discuss your symptoms, your ED visit and to discuss follow up plans Outpatient INSTRUCTIONS ?& RETURN PRECAUTIONS: If any symptoms change first call your primary physician, if it is after-hours your primary doctors office should have a provider hr business partner consultant you can speak with. If the symptoms are severe or very concerning to you then call 911 or return to the ED. Follow up PCP schedule Amilcar Bellamy MD Emergency Physician [facility] Prescriptions: New divalproex [Depakote] 500 mg tablet,delayed release (DR/EC) 500 mg PO BID 14 Days Qty: 28 0RF famotidine 20 mg tablet 20 mg PO DAILY 14 Days Qty: 14 0RF No Action cyclobenzaprine 5 mg tablet 5 mg PO TID PRN (Reason: muscle spasm) Qty: 14 0RF prednisone 20 mg tablet 40 mg PO DAILY 5 Days Qty: 10 0RF ibuprofen 800 mg tablet 800 mg PO Q8H PRN (Reason: pain) Qty: 30 0RF naproxen [Naprosyn] 500 mg tablet 500 mg PO BID PRN (Reason: pain) Qty: 30 0RF cyclobenzaprine 10 mg tablet 10 mg PO TID PRN (Reason: muscle spasm) Qty: 14 0RF cefuroxime axetil 500 mg tablet 500 mg PO Q12H 7 Days Qty: 14 0RF Ear Wax Removal Kit 6.5 % drops 5 drp otic (ear) right Q12H 4 Days Qty: 15 0RF naproxen 500 mg tablet 500 mg PO BID PRN (Reason: pain) Qty: 30 0RF cyclobenzaprine 10 mg tablet 10 mg PO TID PRN (Reason: muscle spasm) Qty: 15 0RF lidocaine [Lidoderm] 5 % adhesive patch,medicated 1 patch topical DAILY Qty: 15 0RF Rx Instructions: leave on most painful area for up to 12 hrs Interventions: ED Discharge Assessment Last Done: 02/08/25 20:41 Discharge Date/Time: 02/08/25 20:45 Print Language: Occitan
[2025-02-08 17:54] LABS: MANUAL DIFF FLAG NO
[2025-02-08 18:10] LABS: Alanine Aminotransferase 41 U/L (0-40); Albumin Level 4.8 g/dL (3.5-5.0); Alkaline Phosphatase 70 U/L (39-117); Anion Gap 11 (12-20); Aspartate Amino Transferase 24 U/L (5-37); Blood Urea Nitrogen 19 mg/dL (9-16); Calcium 9.3 mg/dL (8.4-10.2); Carbon Dioxide 30 mmol/L (22-29); Chloride 106 mmol/L (96-108); Creatinine Clr Calc Pharmacy 76.4; Estimated Glomerular Filt Rate > 60; Potassium 4.1 mmol/L (3.3-5.1); Sodium 143 mmol/L (135-145); Total Protein 7.2 g/dL (6.5-8.0)
[2025-02-08 18:17] LABS: Troponin-I High Sensitivity 2.8 ng/L (<3.5-35.0)
[2025-02-08 18:21] LABS: Hematocrit 44.2 % (42.0-52.0); Hemoglobin 15.2 g/dl (14.0-18.0); Imm Gran Abs Auto 0.01 X10*3/uL (0.00-0.03); Imm Gran Pct Auto 0.2 % (0.0-0.4); Lymphocytes Absolute Auto 2.1 X10*3/uL (1.2-4.9); Mean Corpuscular HGB Conc 34.4 g/dl (31.0-36.0); Mean Corpuscular Hemoglobin 32.3 pg (27.0-33.0); Mean Corpuscular Volume 94.0 fL (80.0-98.0); NRBC Abs Auto 0.000 X10*3/uL (0.0-0.012); NRBC Pct Auto 0.0 /100WBC (0.0-0.2); Platelet Count 189 X10*3/uL (160-400); Red Blood Count 4.70 X10*6/uL (4.60-5.80); White Blood Count 5.7 X10*3/uL (4.8-10.8)
[2025-02-08 18:23] LABS: COVID-19 Test Negative (Negative); IDNOW Serial# 55D5AD1C; IDNOW Serial# 58CA691E
[2025-02-08 18:24] LABS: Influenza B2 Negative (Negative)
--- OUTSIDE RECORDS SUMMARY | 2025-02-08 19:12 | XMS_ITS | Clinical Summary ---
Author Organization [employer] [facility] Address [address] [place] [address] Care Team Providers Care Accountant Cost Name Role Phone Unavailable Primary Care Provider [...] 10/01/2022 Bipolar disorder 11/26/2021 Mood disorder 07/24/2021 Encounters Date Type Department Care Team Description 01/23/2025 Population Health Risk Score [facility] ([facility] Department [address] [place] [id number] Provider, Population Health Generic from Last 3 Months Social History Tobacco Use Types Packs/Day Years [...] 10/26/2022 3:58 PM EDT Plan of Treatment Upcoming Encounters Date Type Department Care Team (Late st Contact Info) Description 02/23/2025 9:00 AM EST Office Visit [facility] [address] [place], [place] [phone] Davion Marina FNP [address] [place], [place] [phone] Health Maintenance Due Date Last Done Comments [...] a test for HCV RNA (test code 03733) is suggested. For additional information please refer to http://education.MyLifePlace.MailTime/faq/YQX22e9 (This link is being provided for informational/ educational purposes only.) 07/28/2021 1:51 PM EDT us Alena [facility] HISTORICAL/NON ORDERABLE LABS Final Result [facility] Critical access hospital [place] * HIV 1/2 ANTIGEN/ANTIBODY,FOURTH GENERATION W/RFL [...] purpose. For additional information please refer to http://education.mobile mum/faq/TCW518 (This link is being provided for informational/ educational purposes only.) The performance of this assay has not been clinically validated in patients less than 2 years old. 07/28/2021 1:51 PM EDT us Alena Schrader [facility] BLOOD ORDERABLES Final Res ult [facility] [address] from Last 3 Months or Most Recently Relevant to Health Maintenance Insurance y apt [address] [place] [address] [facility] MEDICAID STAND ADULT [facility] C3 HSN PARTIAL [facility] MEDICAID STAND ADULT
[2025-02-08 19:28] VITALS: BP 108/80; PULSE 80; RESP 18; TEMP 36.9; O2SAT 98
[2025-02-08 19:30] LABS: Lipase 23 U/L (8-78)
--- NOTE | 2025-02-08 19:43 | PC.NURSE ---
pt reports having chest pain, started over a week go, increasing in intensity last few days. Pt report s9/10 pain in substernal chest radiating up to L shoulder and neck area, denies headache, dizziness, fatigue or other symptoms.
--- NOTE | 2025-02-08 19:44 | PC.NURSE ---
pt medicated per MAR and placed on monitor.
[2025-02-08 20:41] VITALS: BP 109/76; PULSE 77; RESP 18; TEMP 36.6; O2SAT 98
== END 2025-02-08 20:45 | disposition home or self-care (01) ==
PROVIDERS: Physician Assistant Medical; Emergency Provider Emergency Medicine
DX: R10.13 Epigastric pain (principal); F10.90 Alcohol use, unspecified, uncomplicated; F31.9 Bipolar disorder, unspecified; R07.9 Chest pain, unspecified; F17.200 Nicotine dependence, unspecified, uncomplicated; R05.9 Cough, unspecified; Z79.899 Other long term (current) drug therapy
CPT/HCPCS: 71046; 80053; 83690; 84484; 85025; 87502; 87635; 93005; 99284; 99285

== ENCOUNTER → 2025-02-08 17:13 | Outpatient (BNV) | payer MEDICAID, SELFPAY | PROVIDERS: Emergency Provider Emergency Medicine; Visit Provider Internal Medicine Cardiovascular Disease | DX: R07.9 Chest pain, unspecified (principal) | CPT/HCPCS: 93010 ==

== ENCOUNTER → 2025-02-08 17:33 | Outpatient (BNV) | payer MEDICAID, SELFPAY | PROVIDERS: Emergency Provider Emergency Medicine; Visit Provider Radiology Diagnostic Radiology | DX: R05.9 Cough, unspecified (principal) | CPT/HCPCS: 71046 ==